=== PATIENT | female | born 1970 ===

== ENCOUNTER → 2016-10-03 | Outpatient (CLI) | payer OTHER | LOC: FIMAGING 10:21 | PROVIDERS: ATTEND Internal Medicine Geriatric Medicine | DX: Z12.31 Encounter for screening mammogram for malignant neoplasm of breast (principal) | CPT/HCPCS: G0202 ==

== ENCOUNTER → 2016-10-17 | Outpatient (CLI) | payer OTHER | LOC: FIMAGING 08:43 | PROVIDERS: ATTEND Internal Medicine Geriatric Medicine | DX: R92.8 Other abnormal and inconclusive findings on diagnostic imaging of breast (principal) | CPT/HCPCS: G0206 ==

== ENCOUNTER → 2017-11-26 | Outpatient (CLI) | payer OTHER | LOC: FIMAGING 15:10 | PROVIDERS: ATTEND Internal Medicine Geriatric Medicine | DX: Z12.31 Encounter for screening mammogram for malignant neoplasm of breast (principal) ==